=== PATIENT | female | born 1990 | race Hispanic/Latino ===

== ENCOUNTER 2022-07-15 09:00 | Emergency (ER) | payer BC, SELFPAY ==
[2022-07-15 09:14] VITALS: BP 105/57; PULSE 80; RESP 16; TEMP 37; O2SAT 99
--- NOTE | 2022-07-15 10:09 | ED.BACK ---
HPI - Back Pain/Injury General Chief Complaint: Back Pain/Injury Stated Complaint: Back Pain/ UTI Time Seen by Provider: 07/15/22 10:09 Source: patient Mode of arrival: ambulatory Limitations: no limitations History of Present Illness HPI Narrative: 31-year-old female presents with complaint of low back pain radiating to right side pain and to right buttock for 1 week. Reports that she deep cleaned her house 1 week ago. States she bent down to pick something up and had sudden pain to her low back. She is ambulatory with steady gait. Taking Tylenol ibuprofen treat her pain. Reports that she is getting tightening and spasming to mostly the right side of her lower back. No weakness to lower extremities. No loss of bowel or bladder. Is requesting a muscle relaxant. All systems reviewed and negative except as noted above. Related Data Allergies Allergy/AdvReac Type Severity Reaction Status Date / Time No Known Allergies Allergy Verified 07/15/22 09:56 Review of Systems Review of Systems: CONSTITUTIONAL: Denies fever, chills, or sweats. EYES: Denies visual changes, redness, or discharge. ENT: Denies rhinorrhea, congestion, sore throat, or otalgia. CARDIOVASCULAR: Denies chest pain, palpitations, or edema. RESPIRATORY: Denies cough or dyspnea. GASTROINTESTINAL: Denies abdominal pain, nausea, vomiting, or diarrhea. GENITOURINARY: Denies dysuria or hematuria. SKIN: Denies rash or itching. MUSCULOSKELETAL: Reports back pain radiating to right buttock. Denies joint pain, or myalgia. NEUROLOGIC: Denies headache, numbness, or weakness. PSYCHIATRIC: Denies anxiety or depression. All other systems reviewed are negative, except as documented in HPI. PMFSH Comments At time of signature, agree with nursing past medical, surgical, social and family history. There is no relevant family history pertinent to the presenting complaint. Exam Narrative: GENERAL: This is a well-nourished, well-developed patient, in no apparent distress. HEAD: normocephalic, atraumatic. EYES: PERRL. Sclera clear/white. Vision is grossly intact. EARS: External ears normal NOSE: External nose normal NECK: Neck supple, non-tender without lymphadenopathy, masses or thyromegaly. CARDIOVASCULAR: Regular rate and rhythm without murmurs, gallops, or rubs. RESPIRATORY: Clear to auscultation. Breath sounds equal bilaterally. No wheezes, rales, or rhonchi. SKIN: warm, Dry, intact with no suspicious lesions or rash, good texture and turgor. NEURO: awake, alert, and oriented to person, place and time. There were no obvious focal neurologic abnormalities. EXTREMITIES: No joint tenderness, effusion, or edema noted. BACK:No midline tenderness. spasm to R low back. tender to R SI joint. + R straight leg raise. ROM intact. Course Course Level of Care: Express Care Visit Vital Signs Vital signs: Vital Signs Temperature 37.0 C 07/15/22 09:14 Pulse Rate 80 07/15/22 09:14 Respiratory Rate 16 07/15/22 09:14 Blood Pressure 105/57 L 07/15/22 09:14 Pulse Oximetry 99 07/15/22 09:14 Oxygen Delivery Room Air 07/15/22 09:14 Temperature 37.0 C 07/15/22 09:14 Pulse Rate 80 07/15/22 09:14 Respiratory Rate 16 07/15/22 09:14 Blood Pressure 105/57 L 07/15/22 09:14 Pulse Oximetry 99 07/15/22 09:14 Oxygen Delivery Room Air 07/15/22 09:14 reviewed MDM - Back Pain/Injury MDM Narrative Medical decision making narrative: will treat back pain with ibuprofen, medrol dose grant and robaxin. no neuro deficits at discharge. Patient is aware of diagnosis, understands and agrees to treatment plan. Anticipatory guidance given. Patient agrees to follow-up as directed and is aware of reasons to seek care at the emergency department. Portions of this record may have been created with voice recognition software Discharge Plan Discharge Clinical Impression: Strain of muscle, fascia and tendon of lower back, initial encounter, Acute
[2022-07-15] MEDS: KETOROLAC (*BKC) 60 MG/2 ML VIAL IM (10:30)
== END 2022-07-15 10:47 | disposition home or self-care (01) ==
PROVIDERS: Emergency Provider Nurse Practitioner Family; PCP Internal Medicine
DX: S39.012A Strain of muscle, fascia and tendon of lower back, initial encounter (principal); X50.9XXA Other and unspecified overexertion or strenuous movements or postures, initial encounter; M54.41 Lumbago with sciatica, right side
CPT/HCPCS: 96372; 99213; G0463; J1885